=== PATIENT | male | born 1950 | race Caucasian/White ===

== ENCOUNTER 2019-04-25 11:17 | Outpatient (CLI) | payer MEDICARE, SELFPAY ==
[2019-04-25 13:21] VITALS: O2SAT 88; O2SAT 93; O2SAT 95
== END 2019-04-25 11:18 | disposition home or self-care (01) ==
PROVIDERS: Family Provider Nurse Practitioner Family; PCP Nurse Practitioner Family; Visit Provider Internal Medicine Critical Care Medicine
DX: J44.9 Chronic obstructive pulmonary disease, unspecified (principal)
CPT/HCPCS: 94060; 94726; 94729; 94762

== ENCOUNTER 2019-04-25 12:00 | Outpatient (CLI) | payer MEDICARE, SELFPAY | END 2019-04-25 12:01 | disposition home or self-care (01) | LOC: SLEEP 04-26 09:46 | PROVIDERS: Family Provider Nurse Practitioner Family; PCP Nurse Practitioner Family; Visit Provider Internal Medicine Critical Care Medicine | DX: J44.9 Chronic obstructive pulmonary disease, unspecified (principal) | CPT/HCPCS: 94762 ==

== ENCOUNTER → 2019-05-13 10:13 | Outpatient (BNVA) | payer MEDICARE, SELFPAY | PROVIDERS: PCP Nurse Practitioner Family; Visit Provider Otolaryngology | DX: H61.23 Impacted cerumen, bilateral (principal); H90.2 Conductive hearing loss, unspecified | CPT/HCPCS: 69210; 99214 ==

== ENCOUNTER 2019-10-10 20:00 | Outpatient (CLI) | payer MEDICARE, SELFPAY | END 2019-10-10 20:01 | disposition home or self-care (01) | LOC: SLEEP 10-11 11:43 | PROVIDERS: Family Provider Nurse Practitioner Family; PCP Nurse Practitioner Family; Visit Provider Internal Medicine Critical Care Medicine | DX: G47.30 Sleep apnea, unspecified (principal) | CPT/HCPCS: 95810 ==

== ENCOUNTER 2019-11-15 20:00 | Outpatient (CLI) | payer MEDICARE, SELFPAY | END 2019-11-15 20:01 | disposition home or self-care (01) | LOC: SLEEP 11-18 09:11 | PROVIDERS: Family Provider Nurse Practitioner Family; PCP Nurse Practitioner Family; Visit Provider Internal Medicine Critical Care Medicine | DX: G47.30 Sleep apnea, unspecified (principal) | CPT/HCPCS: 95810 ==

== ENCOUNTER → 2019-12-13 12:34 | Outpatient (BNVA) | payer MEDICARE, SELFPAY | PROVIDERS: Family Provider Nurse Practitioner Family; PCP Nurse Practitioner Family; Visit Provider Internal Medicine Critical Care Medicine | DX: Z20.828 Contact with and (suspected) exposure to other viral communicable diseases (principal) | CPT/HCPCS: 87635 ==

== ENCOUNTER 2019-12-17 08:30 | Outpatient (CLI) | payer MEDICARE, SELFPAY ==
--- NOTE | 2019-12-17 08:40 | US_ITS ---
WS: [id number] RIGHT UPPER QUADRANT ULTRASOUND HISTORY: ELEVATED LIVER ENZYMES/FATTY LIVER DISEASE, HYPERGLYCEMIA. COMPARISON: None available. Liver: 17.2 cm in length. Moderately enlarged liver. Diffuse hepatic steatosis and coarsened echotext ure. Surface of the liver is irregular. Gallbladder: Prior cholecystectomy. CBD: 0.5 cm Pancreas: Not visualized. Right kidney: 11.4 cm in length. Normal size and echogenicity. No hydronephrosis or mass. Aorta and IVC: Unremarkable abdominal aorta and IVC. No ascites. US/US gall bladder [id number] IMPRESSION: 1. Moderate hepatic steatosis and hepatomegaly. 2. Prior cholecystectomy.
== END 2019-12-17 08:31 | disposition home or self-care (01) ==
LOC: US 08:34
PROVIDERS: PCP Nurse Practitioner Family; Visit Provider Nurse Practitioner Family
DX: R74.8 Abnormal levels of other serum enzymes (principal); K76.0 Fatty (change of) liver, not elsewhere classified; R73.9 Hyperglycemia, unspecified; R16.0 Hepatomegaly, not elsewhere classified; Z90.49 Acquired absence of other specified parts of digestive tract; R35.0 Frequency of micturition
CPT/HCPCS: 76705; 87086

== ENCOUNTER 2019-12-18 08:18 | Outpatient (CLI) | payer MEDICARE, SELFPAY ==
--- NOTE | 2019-12-18 11:12 | PFTS_ITS ---
Date of Study:12/18/19 Date of Dictation: MECHANICS: Forced vital capacity (FVC) is reduced. Forced expiratory volume in one second (FEV1) is reduced. FEV1/FVC is normal. FLOW VOLUME LOOP: Narrow with scooping. LUNG VOLUMES: Total lung capacity (TLC) is reduced. Residual volume (RV) is reduced. DIFFUSING CAPACITY FOR CARBON MONOXIDE: Moderately reduced. INTERPRETATION: The postbronchodilator spirometry is consistent with moderately severe restriction. There is significant postbronchodilator response. The flow volume loop is suggestive of small airways disease. The lung volumes are suggestive of restrictive lung disease. Gas exchange (DLCO) is moderately reduced. MTDD
== END 2019-12-18 08:19 | disposition home or self-care (01) ==
LOC: RT 08:21
PROVIDERS: PCP Nurse Practitioner Family; Visit Provider Internal Medicine Critical Care Medicine
DX: J44.9 Chronic obstructive pulmonary disease, unspecified (principal)
CPT/HCPCS: 94060; 94726; 94729; J7611

== ENCOUNTER 2020-03-24 14:28 | Outpatient (CLI) | payer MEDICARE, SELFPAY ==
[2020-03-25 14:08] LABS: SS A Ro Sjogrens Antibody <1.0 NEG AI (<1.0 NEG); SS-B/LA IGG <1.0 NEG AI (<1.0 NEG)
[2020-03-25 14:43] LABS: COMPLEMENT COMPONENT C3C 114 mg/dL (82-185); COMPLEMENT COMPONENT C4C 20 mg/dL (15-53)
[2020-03-25 15:12] LABS: COMPLEMENT, TOTAL (CH50) >60 U/mL (31-60)
[2020-03-27 14:28] LABS: CENTROMERE B ANTIBODY <1.0 NEG AI (<1.0 NEG); JO-1 ANTIBODY <1.0 NEG AI (<1.0 NEG); RNP ANTIBODY <1.0 NEG AI (<1.0 NEG); SCL-70 ANTIBODY <1.0 NEG AI (<1.0 NEG); SJOGREN'S ANTIBODY (SS-A) <1.0 NEG AI (<1.0 NEG); SM ANTIBODY <1.0 NEG AI (<1.0 NEG); SS-B <1.0 NEG AI (<1.0 NEG); THYROID PEROXIDASE ANTIBODIES <1 IU/mL (<9)
[2020-03-27 16:02] LABS: ANA SCREEN, IFA NEGATIVE (NEGATIVE)
[2020-03-31 22:07] LABS: DNA AB (DS) CRITHIDIA,IFA NEGATIVE (NEGATIVE)
== END 2020-03-24 14:29 | disposition home or self-care (01) ==
PROVIDERS: PCP Nurse Practitioner Family; Visit Provider Internal Medicine Critical Care Medicine
DX: J84.10 Pulmonary fibrosis, unspecified (principal)
CPT/HCPCS: 36415; 86235; 86431

== ENCOUNTER 2020-03-31 14:01 | Outpatient (CLI) | payer MEDICARE, SELFPAY ==
--- NOTE | 2020-03-31 13:30 | CT_ITS ---
WS: [id number] CT CHEST INTRAVENOUS high-resolution, noncontrast. CONTRAST HISTORY: Interstitial pulmonary fibrosis. TECHNIQUE: High-resolution imaging performed on the thorax. Coronal and sagittal reformats are submit je. All CT scans at [facility] use at least one of these dose optimization techniques: a utomated exposure control; mA and/or kV adjustment per patient size (includes targeted exams where do se is matched to clinical indication); or iterative reconstruction. CONTRAST: None DLP: 1841.93 mGycm COMPARISON: CTA 11/16/2018. PET/CT 10/22/2018 Examination is performed in supine, prone, inspiration and expiration. RIGHT apical soft tissue nodule measuring 2.2 x 1.2 cm. Similar in appearance as the prior PET/CT of 10/22/2018. Bilateral centrilobular changes of emphysema. Mild volume loss in the LEFT thorax. Prior LE FT upper lobectomy. Increase in the reticular nodular thickening in the periphery and predominantly i n a basilar distribution of the RIGHT middle lobe and RIGHT lower lobes. Additional pleural-based bhumi cifications along with honeycombing on the RIGHT. Reticular nodular thickening in the periphery of th e LEFT lung. With expiration there is a decrease in the volume of both lungs and increased groundglas s attenuation. No air trapping is identified. With prone positioning there is no significant improvem ent in the honeycombing in the RIGHT lower or RIGHT middle lobes. Upper abdomen: Prior cholecystectomy. Nonobstructing calcification upper pole LEFT kidney. No adrenal mass. Osseous structures: Increase in thoracic kyphosis. No osteoblastic or osteolytic disease. CT/CT chest wo con [id number] IMPRESSION: 1. Status post LEFT upper lobectomy with volume loss in the LEFT thorax. 2. Moderate changes of UIP/IPF. Predominantly within the RIGHT middle and RIGH T lower lobes. 3. Emphysema. 4. RIGHT apical focal scar versus nodule unchanged in appearance since 9. Therefore this is probably scar tissue and gliosis. Consider 6-[address] f ollow-up. 5. Prior cholecystectomy. 6. RIGHT pleural calcifications.
== END 2020-03-31 14:02 | disposition home or self-care (01) ==
LOC: RADWPI 14:02
PROVIDERS: PCP Nurse Practitioner Family; Visit Provider Internal Medicine Critical Care Medicine
DX: J84.10 Pulmonary fibrosis, unspecified (principal); J94.8 Other specified pleural conditions; Z90.49 Acquired absence of other specified parts of digestive tract; J43.9 Emphysema, unspecified; Z90.2 Acquired absence of lung [part of]
CPT/HCPCS: 71250

== ENCOUNTER 2020-05-18 10:58 | Outpatient (CLI) | payer MEDICARE, SELFPAY ==
[2020-05-18 11:28] LABS: Basophils # 0.1 10^3/uL (0.0-0.1); Basophils % 0.9 %; Eosinophils # 0.6 10^3/uL (0.0-0.8); Hematocrit 43.2 % (42.0-52.0); Hemoglobin 14.7 g/dL (11.7-16.6); Lymphocytes # 2.3 10^3/uL (0.8-4.8); Mean Corpuscular Hemoglobin 33.6 pg (28.0-34.0); Mean Corpuscular Volume 98.9 fL (80-94); Mean Platelet Volume 9.4 fL (7.4-10.4); Monocytes # 0.6 10^3/uL (0.2-0.9); Monocytes % 6.4 %; Neutrophils # 5.15 10^3/uL (1.8-7.7); Neutrophils % 59.2 %; Nucleated Red Blood Cells % 0 %; Platelet Count 229 10^3/cmm (130-400); Red Blood Count 4.37 10^6/uL (4.1-5.3); Red Cell Distribution Width 12.1 % (12.1-15.1); White Blood Count 8.7 10^3/uL (4.0-10.0)
[2020-05-18 12:31] LABS: Thyroid Stimulating Hormone 3.44 uIU/mL (0.27-4.20)
[2020-05-18 13:07] LABS: Alanine Aminotransferase 34 U/L (0-41); Albumin Level 4.2 g/dL (3.5-5.2); Alkaline Phosphatase 154 IU/L (40-130); Anion Gap 16.6 (5-19); Aspartate Amino Transferase 34 U/L (0-40); Blood Urea Nitrogen 16 mg/dL (8-23); Calcium 9.7 mg/dL (8.5-10.5); Carbon Dioxide 27 mmol/L (22-29); Chloride 97 mmol/L (98-107); Globulin 3.9 g/dL (1.3-4.6); Glomerular Filtration Rate 84.2 mL/min (90-130); Glucose 145 mg/dL (65-115); Osmolality Calculated 286 mOsm/kg (285-295); Potassium 4.6 mmol/L (3.5-5.1); Sodium 136 mmol/L (136-145); Total Bilirubin 0.5 mg/dL (0.15-1.2); Total Protein 8.1 g/dL (6.6-8.7)
== END 2020-05-18 10:59 | disposition home or self-care (01) ==
LOC: LAB 11:02
PROVIDERS: PCP Nurse Practitioner Family; Visit Provider Internal Medicine Critical Care Medicine
DX: J84.10 Pulmonary fibrosis, unspecified (principal)
CPT/HCPCS: 80053; 84443; 85025

== ENCOUNTER 2020-06-30 12:51 | Outpatient (CLI) | payer MEDICARE, SELFPAY ==
[2020-06-30 13:25] LABS: Basophils # 0.1 10^3/uL (0.0-0.1); Basophils % 0.7 %; Eosinophils # 0.4 10^3/uL (0.0-0.8); Eosinophils % 5.4 %; Hematocrit 39.8 % (42.0-52.0); Hemoglobin 13.7 g/dL (11.7-16.6); Lymphocytes # 1.7 10^3/uL (0.8-4.8); Mean Corpuscular HGB Conc 34.4 g/dL (30.0-36.0); Mean Corpuscular Hemoglobin 33.3 pg (28.0-34.0); Mean Corpuscular Volume 96.8 fL (80-94); Mean Platelet Volume 9.3 fL (7.4-10.4); Monocytes # 0.4 10^3/uL (0.2-0.9); Monocytes % 5.9 %; Neutrophils # 4.76 10^3/uL (1.8-7.7); Neutrophils % 64.7 %; Nucleated Red Blood Cells % 0 %; Platelet Count 179 10^3/cmm (130-400); Red Blood Count 4.11 10^6/uL (4.1-5.3); Red Cell Distribution Width 11.8 % (12.1-15.1); White Blood Count 7.4 10^3/uL (4.0-10.0)
[2020-06-30 13:46] LABS: Alanine Aminotransferase 18 U/L (0-41); Alkaline Phosphatase 143 IU/L (40-130); Aspartate Amino Transferase 18 U/L (0-40); Blood Urea Nitrogen 11 mg/dL (8-23); Calcium 8.5 mg/dL (8.5-10.5); Carbon Dioxide 29 mmol/L (22-29); Chloride 98 mmol/L (98-107); Globulin 3.2 g/dL (1.3-4.6); Glomerular Filtration Rate 112.5 mL/min (90-130); Glucose 173 mg/dL (65-115); Osmolality Calculated 286 mOsm/kg (285-295); Sodium 136 mmol/L (136-145); Total Bilirubin 0.5 mg/dL (0.15-1.2); Total Protein 7.2 g/dL (6.6-8.7)
== END 2020-06-30 12:52 | disposition home or self-care (01) ==
LOC: LAB 12:58
PROVIDERS: PCP Nurse Practitioner Family; Visit Provider Internal Medicine Critical Care Medicine
DX: J84.10 Pulmonary fibrosis, unspecified (principal)
CPT/HCPCS: 36415; 80053; 85025

== ENCOUNTER 2020-07-29 10:26 | Outpatient (CLI) | payer MEDICARE, SELFPAY ==
--- NOTE | 2020-07-29 10:38 | XR_ITS ---
WS: [id number] Right hand, 3 views, 07/29/2020 Clinical Data: R HAND WRIST PAIN Comparison: None. Findings: No fractures or dislocations are seen. The soft tissues are unremarkable.There is a fusio n of the right first MCP joint. XR/XR hand RT min 3V* [id number] Impression: Negative right hand.
--- NOTE | 2020-07-29 10:38 | XR_ITS ---
WS: [id number] Right wrist, 3 views, 07/29/2020 Clinical Data: R HAND WRIST PAIN Comparison: None. Findings: No fractures or dislocations are seen. The carpal bones are intact. There is no soft tissue swelling. The distal radius and ulna are not remarkable. There is a fusion of the right first MCP joint. XR/XR wrist RT min 3V* [id number] Impression: Negative right wrist.
== END 2020-07-29 10:27 | disposition home or self-care (01) ==
PROVIDERS: PCP Nurse Practitioner Family; Visit Provider Nurse Practitioner Family
DX: M79.641 Pain in right hand (principal); M25.531 Pain in right wrist
CPT/HCPCS: 73110; 73130

== ENCOUNTER 2020-08-10 10:40 | Outpatient (CLI) | payer MEDICARE, SELFPAY ==
[2020-08-10 11:21] LABS: Basophils # 0.1 10^3/uL (0.0-0.1); Basophils % 0.7 %; Eosinophils # 0.4 10^3/uL (0.0-0.8); Eosinophils % 5.4 %; Hematocrit 42.4 % (42.0-52.0); Hemoglobin 14.4 g/dL (11.7-16.6); Lymphocytes # 2.1 10^3/uL (0.8-4.8); Lymphocytes % 26.8 %; Mean Corpuscular Hemoglobin 33.3 pg (28.0-34.0); Mean Corpuscular Volume 98.1 fL (80-94); Mean Platelet Volume 9.7 fL (7.4-10.4); Monocytes # 0.6 10^3/uL (0.2-0.9); Monocytes % 7.4 %; Neutrophils # 4.56 10^3/uL (1.8-7.7); Neutrophils % 59.4 %; Nucleated Red Blood Cells % 0 %; Platelet Count 165 10^3/cmm (130-400); Red Blood Count 4.32 10^6/uL (4.1-5.3); Red Cell Distribution Width 12.2 % (12.1-15.1); White Blood Count 7.7 10^3/uL (4.0-10.0)
[2020-08-10 11:38] LABS: Estmated Average Glucose 108; Hemoglobin A1C 5.4 % (4.0-6.0)
[2020-08-10 11:47] LABS: Alanine Aminotransferase 19 U/L (0-41); Albumin Level 4.4 g/dL (3.5-5.2); Alkaline Phosphatase 136 IU/L (40-130); Anion Gap 13.9 (5-19); Aspartate Amino Transferase 27 U/L (0-40); Blood Urea Nitrogen 20 mg/dL (8-23); Calcium 9.2 mg/dL (8.5-10.5); Carbon Dioxide 31 mmol/L (22-29); Chloride 100 mmol/L (98-107); Globulin 3.2 g/dL (1.3-4.6); Glomerular Filtration Rate 112.5 mL/min (90-130); Glucose 171 mg/dL (65-115); Osmolality Calculated 297 mOsm/kg (285-295); Potassium 4.9 mmol/L (3.5-5.1); Sodium 140 mmol/L (136-145); Thyroid Stimulating Hormone 1.66 uIU/mL (0.27-4.20); Total Bilirubin 0.8 mg/dL (0.15-1.2); Total Protein 7.6 g/dL (6.6-8.7)
== END 2020-08-10 10:41 | disposition home or self-care (01) ==
LOC: LAB 10:47
PROVIDERS: PCP Nurse Practitioner Family; Visit Provider Internal Medicine Critical Care Medicine
DX: J84.10 Pulmonary fibrosis, unspecified (principal); E11.9 Type 2 diabetes mellitus without complications; K76.0 Fatty (change of) liver, not elsewhere classified; E78.5 Hyperlipidemia, unspecified; E03.9 Hypothyroidism, unspecified; I10 Essential (primary) hypertension; R74.8 Abnormal levels of other serum enzymes; N52.9 Male erectile dysfunction, unspecified
CPT/HCPCS: 36415; 80053; 83036; 84443; 85025

== ENCOUNTER → 2020-08-28 14:36 | Outpatient (BNVA) | payer MEDICARE, SELFPAY | PROVIDERS: PCP Nurse Practitioner Family; Visit Provider Internal Medicine Critical Care Medicine | DX: Z01.812 Encounter for preprocedural laboratory examination (principal); Z20.822 Contact with and (suspected) exposure to COVID-19 | CPT/HCPCS: 87635 ==

== ENCOUNTER 2020-09-03 13:05 | Outpatient (CLI) | payer MEDICARE, SELFPAY ==
--- NOTE | 2020-09-03 13:49 | PFTS_ITS ---
Date of Study:09/03/20 Date of Dictation: 09/08/20 MECHANICS: Post bronchodilator Forced vital capacity (FVC) is reduced 59% . Post bronchodilator Forced expiratory volume in one second (FEV1) is moderately reduced 55% . FEV1/FVC is reduced. There is no significant response to bronchodilators . FLOW VOLUME LOOP: Sloping of end expiratory limb suggestive of small airway obstruction. LUNG VOLUMES: Total lung capacity (TLC) is moderately reduced 60%. Residual volume (RV) is normal. DIFFUSING CAPACITY FOR CARBON MONOXIDE: Not measured . INTERPRETATION: The pulmonary function tests are consistent with mixed pattern with spirometry demonstrating moderate obstructive ventilatory defect and lung volumes reflecting moderate restriction. Gas transfer not measured. Clinical correlation recommended. [facility]
== END 2020-09-03 13:06 | disposition home or self-care (01) ==
LOC: RT 13:10
PROVIDERS: PCP Nurse Practitioner Family; Visit Provider Internal Medicine Critical Care Medicine
DX: J84.10 Pulmonary fibrosis, unspecified (principal)
CPT/HCPCS: 94060; 94726; 94729; J7611

== ENCOUNTER 2020-09-24 12:58 | Outpatient (RCR) | payer MEDICARE, SELFPAY | END 2020-10-17 23:59 | disposition home or self-care (01) | LOC: PULRHB 12:58 | PROVIDERS: PCP Nurse Practitioner Family; Visit Provider Internal Medicine Critical Care Medicine | DX: J44.9 Chronic obstructive pulmonary disease, unspecified (principal) | CPT/HCPCS: 94618; G0237; G0238; G0239; G0424 ==

== ENCOUNTER 2020-10-18 06:00 | Outpatient (RCR) | payer MEDICARE, SELFPAY | END 2020-11-17 23:59 | disposition home or self-care (01) | LOC: PULRHB 06:00 | PROVIDERS: PCP Nurse Practitioner Family; Visit Provider Internal Medicine Critical Care Medicine | DX: J98.4 Other disorders of lung (principal) | CPT/HCPCS: G0237; G0238; G0239; G0424 ==

== ENCOUNTER 2020-11-18 06:00 | Outpatient (RCR) | payer MEDICARE, SELFPAY | END 2020-12-01 23:00 | disposition home or self-care (01) | LOC: SOT 06:00 | PROVIDERS: PCP Nurse Practitioner Family | DX: M79.641 Pain in right hand (principal); M25.531 Pain in right wrist | CPT/HCPCS: 97035; 97110; 97165 ==

== ENCOUNTER 2020-11-18 06:00 | Outpatient (RCR) | payer MEDICARE, SELFPAY | END 2020-12-17 23:59 | disposition home or self-care (01) | LOC: PULRHB 06:00 | PROVIDERS: PCP Nurse Practitioner Family; Visit Provider Internal Medicine Critical Care Medicine | DX: J98.4 Other disorders of lung (principal) | CPT/HCPCS: G0237; G0238; G0239 ==

== ENCOUNTER 2020-12-11 14:49 | Outpatient (CLI) | payer MEDICARE, SELFPAY ==
--- NOTE | 2020-12-11 15:03 | XR_ITS ---
WS: [id number] PA and lateral chest, 12/11/2020 Clinical Data: SOB Comparison: PA and lateral chest, 02/25/2019. Findings: No nodules, masses or effusions are seen. The interstitial opacities have diminished in bot h lungs. There is elevation of the left diaphragm with volume loss in the left lung. There are left h ilar clips. The right diaphragm is flattened. The heart is normal. The aortic arch and descending tho racic aorta show calcification and tortuosity. No pneumonia or pneumothorax is seen. XR/XR chest 2V* [id number] Impression: 1. Improvement in chronic interstitial opacities. 2. No change in volume loss of the left lung with elevation of left diaphragm. 3. Hyperinflation and atherosclerosis.
[2020-12-11 15:28] LABS: Basophils # 0.1 10^3/uL (0.0-0.1); Basophils % 0.9 %; Eosinophils # 0.5 10^3/uL (0.0-0.8); Eosinophils % 5.3 %; Hematocrit 41.8 % (42.0-52.0); Hemoglobin 14.1 g/dL (11.7-16.6); Lymphocytes # 2.6 10^3/uL (0.8-4.8); Lymphocytes % 27.8 %; Mean Corpuscular HGB Conc 33.7 g/dL (30.0-36.0); Mean Corpuscular Hemoglobin 33.3 pg (28.0-34.0); Mean Corpuscular Volume 98.8 fl (80-94); Monocytes # 0.5 10^3/uL (0.2-0.9); Monocytes % 5.9 %; Neutrophils # 5.52 10^3/uL (1.8-7.7); Neutrophils % 59.9 %; Nucleated Red Blood Cells % 0 %; Platelet Count 213 10^3/cmm (130-400); Red Blood Count 4.23 10^6/uL (4.1-5.3); Red Cell Distribution Width 11.7 % (12.1-15.1); White Blood Count 9.2 10^3/uL (4.0-10.0)
[2020-12-11 15:56] LABS: Alanine Aminotransferase 19 U/L (0-41); Alkaline Phosphatase 149 IU/L (40-130); Anion Gap 16.2 (5-19); Aspartate Amino Transferase 20 U/L (0-40); Blood Urea Nitrogen 25 mg/dL (8-23); Carbon Dioxide 24 mmol/L (22-29); Chloride 100 mmol/L (98-107); Globulin 3.9 g/dL (1.3-4.6); Glomerular Filtration Rate 112.1 mL/min (90-130); Glucose 245 mg/dL (65-115); Osmolality Calculated 295 mOsm/kg (285-295); Potassium 4.2 mmol/L (3.5-5.1); Sodium 136 mmol/L (136-145); Total Bilirubin 0.5 mg/dL (0.15-1.2); Total Protein 7.9 g/dL (6.6-8.7)
== END 2020-12-11 14:50 | disposition home or self-care (01) ==
LOC: RAD 14:55
PROVIDERS: PCP Nurse Practitioner Family; Visit Provider Internal Medicine Critical Care Medicine
DX: R06.02 Shortness of breath (principal); J84.10 Pulmonary fibrosis, unspecified
CPT/HCPCS: 36415; 71046; 80053; 85025

== ENCOUNTER → 2020-12-15 12:56 | Outpatient (BNVA) | payer MEDICARE, SELFPAY | PROVIDERS: PCP Nurse Practitioner Family; Visit Provider Internal Medicine Critical Care Medicine | DX: J44.9 Chronic obstructive pulmonary disease, unspecified (principal); Z20.822 Contact with and (suspected) exposure to COVID-19 | CPT/HCPCS: 87635 ==